=== PATIENT | male | born 1950 | race American Indian/Alaskan Native ===

== ENCOUNTER 2018-12-12 20:17 | Emergency (ER) | payer MEDICARE, OTHER ==
[~2018-12-12] VITALS: Ht 170.2 cm; Wt 81.7 kg
[~2018-12-12 20:17] MED LIST: ALBU90OI6 INH; ASPI81CH PO; ASPIRIN 81 MG PO; ATOR20 PO; ATOR40TA PO; Aspir 8181 MG PO; CEPH500 PO; DULERA 100 MCG/13 GM INH; IBUP800; IBUP800 PO; LEVFLO500 PO; Lipitor20 MG PO; METF500 PO
[2018-12-12 21:01] LABS: Hematocrit 38.2 % (37.0-53.0); Hemoglobin 13.3 g/dL (13.5-17.5); Mean Corpuscular HGB 35.7 pg (26.0-34.0); Mean Corpuscular HGB Conc 34.8 g/dL (31.5-36.5); Mean Corpuscular Volume 102 fL (80-100); Mean Platelet Volume 10.9 fL (9.1-12.4); Platelet Count 180 K/mm3 (150-400); RDW Coefficient Variation 11.9 % (11.7-14.2); RDW Standard Deviation 44.3 fL (35.1-46.3); Red Blood Cell Count 3.73 M/mm3 (4.30-5.90); White Blood Cell Count 6.91 K/mm3 (4.00-11.30)
[2018-12-12 21:27] LABS: Anion Gap 11 mmol/L (6-16); Blood Urea Nitrogen 13 mg/dL (8-24); Bun/Creatinine Ratio 19.1 (12.0-20.0); CO2, Blood 27 mmol/L (21-32); Chloride, Blood 101 mmol/L (98-108); Creatinine, Blood 0.68 mg/dL (0.60-1.20); Glomerular Filtration Rate >60 (60-); Glucose, Blood 379 mg/dL (70-99); Potassium, Blood 3.9 mmol/L (3.5-5.5); Sodium, Blood 139 mmol/L (136-145)
[2018-12-12 21:30] LABS: Ethanol (Alcohol), Blood, Med 307 mg/dL
== END 2018-12-12 22:06 | disposition home or self-care (01) ==
LOC: ER 20:17
PROVIDERS: Emergency Medicine
DX: F10.129 Alcohol abuse with intoxication, unspecified (principal); E11.9 Type 2 diabetes mellitus without complications; Z87.891 Personal history of nicotine dependence; Z79.84 Long term (current) use of oral hypoglycemic drugs; Z79.899 Other long term (current) drug therapy; Y90.8 Blood alcohol level of 240 mg/100 ml or more
CPT/HCPCS: 36415; 80048; 85027; 99284; G0480; J1815

== ENCOUNTER 2021-11-01 15:38 | Inpatient (IN) | payer MEDICARE, OTHER ==
[~2021-11-01] VITALS: Ht 170.2 cm; Wt 70.3 kg
[2021-11-01 16:12] LABS: pH Blood Arterial 7.34 (7.35-7.45)
[2021-11-01 16:13] LABS: PCO2 Arterial 27.3 mmHg (35-45); PO2 Arterial 79.7 mmHg (80-100)
[2021-11-01 16:15] LABS: Hematocrit 40.3 % (37.0-53.0); Hemoglobin 14.1 g/dL (13.5-17.5); Mean Corpuscular HGB 34.9 pg (26.0-34.0); Mean Corpuscular Volume 100 fL (80-100); Mean Platelet Volume 11.3 fL (9.1-12.4); Platelet Count 183 K/mm3 (150-400); RDW Coefficient Variation 11.9 % (11.7-14.2); RDW Standard Deviation 43.8 fL (35.1-46.3); Red Blood Cell Count 4.04 M/mm3 (4.30-5.90); White Blood Cell Count 8.96 K/mm3 (4.00-11.30)
[2021-11-01 16:33] LABS: Anion Gap 15 mmol/L (6-16); Blood Urea Nitrogen 30 mg/dL (8-24); Bun/Creatinine Ratio 24.6 (12.0-20.0); CO2, Blood 17 mmol/L (21-32); Calcium, Blood 8.8 mg/dL (8.5-10.1); Chloride, Blood 98 mmol/L (98-108); Creatinine, Blood 1.22 mg/dL (0.60-1.20); Glomerular Filtration Rate 58 (60-); Glucose, Blood 443 mg/dL (70-99); Magnesium, Blood 1.8 mg/dL (1.6-2.4); Potassium, Blood 5.6 mmol/L (3.5-5.5); Sodium, Blood 130 mmol/L (136-145); Troponin I <0.015 ng/mL (0.000-0.040)
[2021-11-01 16:51] LABS: Influenza A, PCR NEGATIVE (NEGATIVE); Influenza B, PCR NEGATIVE (NEGATIVE); Resp Syncytial Virus, PCR NEGATIVE (NEGATIVE)
[2021-11-01 16:54] LABS: SARS-Cov-2 (COVID-19) PCR, MMC POSITIVE (NEGATIVE)
[2021-11-01 17:00] LABS: BAND PERCENT MAN 46 % (0-8); BASOPHILS PERCENT MAN 0 % (0-2); EOSINOPHILS PERCENT MAN 0 % (0-6); LYMPHOCYTES ABSOLUTE MAN 0.44 K/mm3 (0.84-5.20); LYMPHOCYTES PERCENT MAN 5 % (21-46); METAMYELOCYTE ABSOLUTE MAN 0.35 K/mm3 (0.00-0.00); METAMYELOCYTE PERCENT MAN 4 % (0-0); MONOCYTES ABSOLUTE MAN 0.44 K/mm3 (0.16-1.47); MONOCYTES PERCENT MAN 5 % (4-13); MYELOCYTE ABSOLUTE MAN 0.08 K/mm3 (0.00-0.00); MYELOCYTE PERCENT MAN 1 % (0-0); NEUTROPHILS ABSOLUTE MAN 7.61 K/mm3 (1.96-9.15); SEG NEUTROPHILS PERCENT MAN 39 % (41-73); TOTAL CELLS COUNTED 100
[2021-11-01 20:21] LABS: PCO2 Arterial 53.4 mmHg (35-45); PO2 Arterial 61.7 mmHg (80-100); pH Blood Arterial 7.04 (7.35-7.45)
[2021-11-01 21:37] LABS: Bun/Creatinine Ratio 21.4 (12.0-20.0); Creatinine, Blood 1.45 mg/dL (0.60-1.20); Potassium, Blood 3.5 mmol/L (3.5-5.5)
[2021-11-01 23:06] LABS: Source, Urine Foley catheter
[2021-11-01 23:21] LABS: Appearance, Urine Hazy (Clear); Bilirubin, Urine Neg (Neg); Blood, Urine 5+ (Neg); Color, Urine Yellow (P-Yellow); Glucose Qualitative, Urine 4+ (Neg); Ketones, Urine Neg (Neg); Leukocyte Esterase, Urine Neg (Neg); Nitrite, Urine Neg (Neg); Protein, Urine 3+ (Neg); Urobilinogen, Urine NORM (Normal)
[2021-11-01 23:35] LABS: Bacteria Mod /hpf; Red Blood Cells, Urine 25-50 /hpf (0-2); Squamous Epithelial Cells Few /hpf (Few); White Blood Cells, Urine 0-2 /hpf (0-5)
[2021-11-01 23:36] LABS: Amorphous Light (0-Heavy); Hyaline Casts 0-2 /lpf (0-2); Spermatozoa Few /hpf
--- NOTE | 2021-11-02 00:40 | NUR ---
ASSUMED PT CARE FROM ED AT 2130 PT INTUBATED AND SEDATED. VENT AC/VC 16, VT 450, PEEP 16, FIO2 100%, RR 20'S, SPO2 >90%. PT NOT RESPONSIVE TO VERBAL STIMULI; HOWEVER, WAS RESPONSIVE TO NOXIUOS STIMULI. LEVOPHED INFUSING AT 15MCG/MIN UPON ARRIVAL WITH SBP'S 140'S. LEVOPHED DECREASED TO 10MCG/MIN UNTIL PT WAS FURTHER EVALUATED AND ASSESSED. DR. CABRAL AT BEDSIDE TO PLACE CENTRAL LINE. IN THE MEANTIME, LR WAS ORDERED TO BE INFUSED WO. CENTRAL LINE PLACED TO RIGHT IJ. CHEST XRAY WAS PLACED TO CONFIRM BOTH CENTRAL LINE AND POST INTUBATION FROM ED; DR. CABRLA CONFIRMED PLACEMENT. BICARB STARTED AT 100ML/HR. LEVOPHED DROPPED TO 3MCG/MIN WITH LR INFUSING WO; ORDERS FOR 2L TOTAL. PT VERY LABILE WITH BP'S; LEVOPHED TITRATED ACCORDINGLY. ATTEMPTED TO PERFORM SEDATION VACATION; HOWEVER, PT BECAME AGITATED AND REQUIRED INCREASE IN PROPOFOL, WELL ADJUNCT FENTANYL AND ATIVAN. RESP RATE HAD INCREASED TO 30'S WITH OXYGEN SATURATIONS DROPPING TO LOW 80'S; RT NOTIFIED. LEVOPHED PLACED ON STANDBY AT THIS TIME D/T PT'S AGITATION; SBP WAS 118. ONCE PT BECAME SETTLED FROM SEDATION MEDS OXYGEN SATURATIONS INITIALLY RECOVERED AND THEN DROPPED TO LOW 80'S AGAIN. OXYGEN SATURATION PLETH NOTED TO BE FLAT WITH HR NEETU IN THE 50'S. RECHECKED BP WITH SYSTOLIC IN THE 50'S. RESTARTED LEVOPHED AT 8MCG/MIN WITH A REBOUND BP OF SYSTOLIC 190'S AND HR INCREASED TO 120'S; TITRATED BACK DOWN TO 3MCG/MIN AND NOW DOWN TO 1MCG/MIN D/T SBP 150'S. OXYGEN SATURATIONS ARE CURRENTLY 99% ON 100% FIO2 WITH VENT SETTINGS AC/VC PLUS 16, VT 450, PEEP 12, FIO2 80%. RT REMAINS AT BEDSIDE UNTIL OXYGEN SATURATIONS REMAIN STABLE.
[2021-11-02 03:34] LABS: PCO2 Arterial 53.6 mmHg (35-45); PO2 Arterial 82.7 mmHg (80-100); pH Blood Arterial 7.18 (7.35-7.45)
--- NOTE | 2021-11-02 04:29 | NUR ---
END OF SHIFT SUMMARY PT REMAINS INTUBATED AND SEDATED. PROPOFOL AT 25MCG/KG/MIN. DURING BRIEF SEDATION VACATION EARLIER IN SHIFT PT WAS NOT ABLE TO OPEN EYES, BUT WAS ABLE TO SQUEEZE LEFT HAND UPON COMMAND. PT ALSO NOTED TO WITHDRAWAL FROM NOXIOUS STIMULI AND MOVES ALL EXTREMITIES; VERY WEAK. VENT SETTINGS AC/VC PLUS WITH RATE 22, VT 450, PEEP 12, FIO2 90%, SPO2>90%, RR 20'S, WITH ETCO2 25. PT TENDS TO DROP OXYGEN SATURATIONS WITH ANY NOXIOUS STIMULI; RESP RATE INCREASES TO HIGH 20'S-30'S AND ETCO2 DROPS BELOW 25, AND SPO2 DROPS TO THE LOW-MID 80'S. PT HAS REQUIRED ADJUNCT TREATMENT FOR SEDATION, BUT ALSO CAREFUL TITRATIONS OF LEVOPHED. BP'S ARE VERY SENSITIVE TO LEVOPHED TITRATIONS WITH QUICK AND HIGHTENED RESPONSES. CURRENTLY, LEVOPHED REMAINS AT 2MCG/MIN WITH MAPS >65. CENTRAL LINE TO RIGHT IJ. BICARB INFUSION INCREASED TO 150ML/HR THIS MORNING PER . TEMP PALOMINO IN PLACE DRAINING DARK, CLOUDY, AND VIVI COLORED URINE. UNABLE TO RETURN CALL TO [facility], WHOM CALLED EMS FOR PATIENT PT WAS CRITICAL AND REQUIRED ONE TO ONE NURSING FOR THE FIRST FEW HOURS UPON ARRIVAL TO UNIT. WILL ATTEMPT LATER IN THE MORNING. WILL CONTINUE TO MONITOR UNTIL REPORT IS HANDED OFF TO ONCOMING RN.
[2021-11-02 04:50] LABS: Hemoglobin 11.3 g/dL (13.5-17.5); Mean Corpuscular HGB 35.1 pg (26.0-34.0); Mean Corpuscular HGB Conc 34.2 g/dL (31.5-36.5); Mean Corpuscular Volume 103 fL (80-100); Mean Platelet Volume 11.1 fL (9.1-12.4); Platelet Count 154 K/mm3 (150-400); RDW Coefficient Variation 12.1 % (11.7-14.2); RDW Standard Deviation 46.1 fL (35.1-46.3); Red Blood Cell Count 3.22 M/mm3 (4.30-5.90); White Blood Cell Count 2.55 K/mm3 (4.00-11.30)
[2021-11-02 05:11] LABS: International Normalized Ratio 1.23; Prothrombin Time Results 12.7 Sec (9.7-11.5)
[2021-11-02 05:48] LABS: Albumin, Blood 2.2 g/dL (3.4-5.0); Albumin/Globulin Ratio 0.7 (0.8-1.8); Bilirubin, Total 0.3 mg/dL (0.1-1.0); Bun/Creatinine Ratio 21.5 (12.0-20.0); Calcium, Blood 7.1 mg/dL (8.5-10.1); Creatinine, Blood 1.44 mg/dL (0.60-1.20); Globulin, Blood 3.3 g/dL (2.2-4.0); Magnesium, Blood 1.6 mg/dL (1.6-2.4); Phosphorus, Blood 2.9 mg/dL (2.5-4.9); Potassium, Blood 3.3 mmol/L (3.5-5.5); Thyroid Stimulating Hormone 1.32 uIU/mL (0.360-4.800); Total Protein, Blood 5.5 g/dL (6.4-8.2)
[2021-11-02 05:53] LABS: Troponin I 0.532 ng/mL (0.000-0.040)
[2021-11-02 06:43] LABS: BAND PERCENT MAN 50 % (0-8); BASOPHILS PERCENT MAN 0 % (0-2); EOSINOPHILS ABSOLUTE MAN 0.02 K/mm3 (0.00-0.68); EOSINOPHILS PERCENT MAN 1 % (0-6); LYMPHOCYTES PERCENT MAN 12 % (21-46); METAMYELOCYTE ABSOLUTE MAN 0.25 K/mm3 (0.00-0.00); METAMYELOCYTE PERCENT MAN 10 % (0-0); MONOCYTES PERCENT MAN 4 % (4-13); MYELOCYTE ABSOLUTE MAN 0.12 K/mm3 (0.00-0.00); MYELOCYTE PERCENT MAN 5 % (0-0); PROMYELOCYTE ABSOLUTE MAN 0.02 K/mm3 (0.00-0.00); PROMYELOCYTE PERCENT MAN 1 % (0-0); SEG NEUTROPHILS PERCENT MAN 17 % (41-73); TOTAL CELLS COUNTED 100
[2021-11-02 09:28] LABS: PO2 Arterial 62.1 mmHg (80-100); pH Blood Arterial 7.27 (7.35-7.45)
--- NOTE | 2021-11-02 12:15 | NUR ---
REASSESSMENT PT REMAINS INTUBATED AND SEDATED. ABOUT NOON WHEN TURNING AND RESPOSITIONING HIM HIS RLE STARTED RHYTHMICALLY JERKING SLIGHTLY. HIS JAW WAS ALSO MOVING IN A RHYTHMIC MOTION. DR. JONES TO THE BEDSIDE TO WITNESS. 2MG ATIVAN GIVEN PER MAR AND JERKING STOPPED. PT DESATURATED TO 80% WITH THE TURN AND SEIZURE LIKE MOVEMENTS AND TOOK ABOUT 10 MINUTES TO RECOVER. RT HAD WEANED PT DOWN TO 75% fio2, BUT HE IS NOW BACK UP TO 90%fio2 AFTER ALL THIS. LUNGS ARE CLEAR, DIM. MINIMAL SECRETIONS. WEAK GAG. COUGH PRESENT. PT CONTINUES TO REQUIRE LEVOPHED FOR BP SUPPORT. ATTEMPTED TO WEAN DOWN BUT PT DID NOT TOLERATE. REMAINS ON INSULIN GTT. BG CONTINUE TO BE IN THE 300S BUT COMING DOWN. WAITING FOR TUBE FEED ORDERS FROM MANAGER OF DIGITAL. [place]TE WITH 450ML OUTPUT THIS MORNING. CONTINUING TO MONITOR.
[2021-11-02 12:53] LABS: Bun/Creatinine Ratio 23.1 (12.0-20.0); Calcium, Blood 7.3 mg/dL (8.5-10.1); Creatinine, Blood 1.43 mg/dL (0.60-1.20); Potassium, Blood 3.7 mmol/L (3.5-5.5)
--- NOTE | 2021-11-02 14:28 | NUR ---
WITHT HE LAST TURN PT'S FOOT STARTED TREMORING AGAIN AND OXYGEN RAPIDLY DROPPED TO 78%, DESPITE PREOXYGENATING WITH 100% BECAUSE OF PT DESATURATING WITH LAST TURN. 2MG ATIVAN GIVEN AND PT SLWLY RECOVERED. DR. CABRAL NOTIFIED OF THIS HAPPENING AGAIN. ALSO CLARIFIED KEP[facility] ORDER AND RECEIVED OK TO GIVE IV AND HOLD UNTIL AFTER EEG BECAUSE FINANCIAL SERVICES OFFICER CALLED AND SAID SHE COULD COME DO IT NOW. CONTINUE TO MONITOR.
--- NOTE | 2021-11-02 18:01 | NUR ---
SHIFT SUMMARY PT REMAINS INTUBATED AND SEDATED. THIS AFTERNOON PT HAS BEEN GETTING VERY AGITATED WITH ANY DISTURBANCE CAUSING HIM TO QUICKLY KATYA PHIS SATURATIONS TO 80%. THE FIRST TIME THIS HAPPENED IT APPEARED PT MIGHT BE HAVING SEIZURE LIKE ACTIVITY SO EEG ORDERED BY DR. CABRAL AND DONE THIS AFTERNOON. SEDATION WAS ABLE TO BE OFF FOR THIS 40 MINUTES BEFORE PT'S SATURATIONS DROPPED TO 80% ON 100% FIO2. SEDATION WAS RESTARTED AND PRN FENTANYL WAS REQUIRED TO GET PT'S SATURATIONS BACK UP. BEFORE SEDATION WAS RESTARTED PT DID NOT FOLLOW ANY COMMANDS. THIS MORNING PT HAD A WEAK GAG REFLEX, BUT THIS EVENING NO GAG REFLEX IS NOTED. PUPILS REMAIN PINPOINT, SLUGGISH RESPONSE. LUGNS ARE CLEAR, BUT DIM. LEVOPHED FOR BP SUPPORT, ATTEMPTED TO WEAN DOWN, BUT MAP DROPPED BELOW 60. FOELY WITH 450 ML OF URINE BEFORE NOON, BUT ONLY 115ML THIS AFTERNOON. TUBE FEED STARTED THIS EVENING AFTER EEG COMPLETE. SPOKE WITH PT'S SISTER AND PROVIDED HER WITH UPDATE VIA TC.
--- NOTE | 2021-11-02 20:15 | NUR ---
PT'S SISTER DILMA IS UPDATED BY PHONE.
--- NOTE | 2021-11-02 21:11 | NUR ---
DR CABRAL CONTACTED ABOUT INSULIN GTT. WILL DECREASE TO 1 UNIT/HR AND IF CBG REMAINS UNDER 150 MAY DC GTT AND CHANGE TO HIGH SS AND Q6 CBG
[2021-11-03 04:05] LABS: Hematocrit 31.2 % (37.0-53.0); Hemoglobin 10.8 g/dL (13.5-17.5); Mean Corpuscular HGB 35.2 pg (26.0-34.0); Mean Corpuscular HGB Conc 34.6 g/dL (31.5-36.5); Mean Corpuscular Volume 102 fL (80-100); Platelet Count 115 K/mm3 (150-400); RDW Coefficient Variation 12.5 % (11.7-14.2); RDW Standard Deviation 46.5 fL (35.1-46.3); Red Blood Cell Count 3.07 M/mm3 (4.30-5.90); White Blood Cell Count 2.17 K/mm3 (4.00-11.30)
[2021-11-03 04:25] LABS: Albumin/Globulin Ratio 0.6 (0.8-1.8); Bilirubin, Total 0.5 mg/dL (0.1-1.0); Creatinine, Blood 1.43 mg/dL (0.60-1.20); Globulin, Blood 3.4 g/dL (2.2-4.0); Magnesium, Blood 1.7 mg/dL (1.6-2.4); Phosphorus, Blood 3.3 mg/dL (2.5-4.9); Total Protein, Blood 5.4 g/dL (6.4-8.2)
[2021-11-03 05:23] LABS: BAND PERCENT MAN 33 % (0-8); BASOPHILS PERCENT MAN 0 % (0-2); EOSINOPHILS PERCENT MAN 0 % (0-6); LYMPHOCYTES ABSOLUTE MAN 0.47 K/mm3 (0.84-5.20); LYMPHOCYTES PERCENT MAN 22 % (21-46); METAMYELOCYTE ABSOLUTE MAN 0.04 K/mm3 (0.00-0.00); METAMYELOCYTE PERCENT MAN 2 % (0-0); MONOCYTES ABSOLUTE MAN 0.06 K/mm3 (0.16-1.47); MONOCYTES PERCENT MAN 3 % (4-13); MYELOCYTE ABSOLUTE MAN 0.06 K/mm3 (0.00-0.00); MYELOCYTE PERCENT MAN 3 % (0-0); NEUTROPHILS ABSOLUTE MAN 1.51 K/mm3 (1.96-9.15); SEG NEUTROPHILS PERCENT MAN 37 % (41-73); TOTAL CELLS COUNTED 100
--- NOTE | 2021-11-03 06:18 | NUR ---
TF IS AT GOAL, CBG TRENDING UP NECESSITATING TITRATING UP INSULIN GTT. NO SX ACITIVITY NOTED. LEVOPHED AT 1-2MCG/MIN FOR BP SUPPORT. ETT CUFF CHECKED MULTIPLE TIMES BY RT FOR LEAKS, WORSE WITH POSITION CHANGE. NO OTHER SIGNIFICANT CHANGES NOTED. WILL CONTINUE TO MONITOR AND REPORT TO ONCOMING SHIFT.
--- NOTE | 2021-11-03 08:37 | NUR ---
ASSUMED CARE PT. REMAINS INTUBATED. SEDATION PLACED ON STAND BY UPON ENTRY INTO ROOM FOR NERUO ASSESSMENT. PT. HAS OCCASIONAL GRIMACE HOWEVER DOES NOT RESPOND TO VERBAL STIMULI AT THIS TIME. PT. DOES NOT WITHDRAWN FROM PAIN AT THIS TIME. THERE IS NO GAG WITH DEEP SUCTION AT THIS TIME. PUPILS ARE EQUAL AND REACTIVE TO LIGHT. PT. CONTINUES ON LEVOPHED GTT AT 1MCG/KG/MIN. INSULIN GTT INFUSING AT 8U/HR PT. HAS OG TUBE WITH TF INFUSING. < 10ML RESIDUAL REINSTILLED. ABD SOFT. LOOSE STOOL NOTED WITH TURN. PT. HAS PALOMINO TEMP PROBE IN PLACE, DRAINING YELLOW URINE TO GRAVITY. BILAT WRIST RESTRAINTS IN PLACE FOR SAFETY. VSS AT THIS TIME.
--- NOTE | 2021-11-03 09:15 | NUR ---
SEDATION VACATION PROPOFOL ON STAND BY FOR 1HR. PT. HAD GRIMACE AND SWALLOW WITH REPOSITION BUT NO GAG WITH DEEP SUCTION. OCCASIONALLY COUGH ON ETT. PT. RR INCREASED TO 30S. PT. PROPOFOL RESTARTED AT THIS TIME AT 30MCG/KG/MIN. PT CONTINUES WITH DIARRHEA, RECTAL TUBE PLACED AND STOOL SAMPLE OBTAINED. DR. PUGH AT BEDSIDE TO [place].
--- NOTE | 2021-11-03 12:00 | NUR ---
UPDATE PT. DESATS QUICKLY TO THE LOW 80s WITH REPOSITIONING. TAKING APPORX 30 MIN TO RECOVER TO LOW 90S. FIO2 INCREASED TO 80%.CUFF LEAK NOTED WITH POSITIONING, ADD ADDITIONAL AIR THIS AM AND RT AWARE. LEVOPHED PLACED ON STAND BY AT THIS TIME.
[2021-11-03 13:00] LABS: C DIFFICILE DNA NEGATIVE (Negative)
--- NOTE | 2021-11-03 15:00 | NUR ---
DESATURATION PT. BEGAN TO DESAT DOWN TO 82%. BILAT BS NOTED, UNCHANGED FROM PREVIOUS ASSESSMENT.CALL TO RT TO ASSIST WITH VENT SETTINGS. DR. BAZZI TO BEDSIDE. ATTEMPTED REPOSITIONING. MINIMAL SECREATIONS WITH DEEP SUCTION. VENT SETTINGS CHANGED, PEEP INCREASED TO 14, FIO2 INCREASED TO 90%. 2MG ATIVAN GIVEN AND PROPOFOL GTT INCREASED TO 45 MCG/KG/MIN. SPO2 IMPROVED TO 92%.
--- NOTE | 2021-11-03 16:10 | NUR ---
Pt resting in bed and is intubated. Spoke with Pt's Primary RN Sammie and discussed case. Pt has sedation vacaton today, Pt was able to grimace but no gag reflex. Called and spoke with Pt's sister Lucie. Provided update and offered therapetuic listening as Lucie reports her and Pt are the last 2 surviving siblings of 10. She reports Pt never and never had children. Continued therapeutic listening. Engaged on conversation regarding Pt's wishes for CPR. Educated on life sustaing treatment including risk factors and implications of CPR. Lucie reports plan to have her son (Pt's nephew) call to assist with understanding CPR due to her current stress levels. Pt's nephew calls this PC RN. Relayed update on Pt's condition and education regarding CPR and Pt's wishes. Answered questions and offered therapeutic listening. Nephdakota Olivas reports the last time he saw Pt, Pt did not look well and his health appeared poor. Nephdakota Olivas expresses appreciation and will assit Pt's sister Lucie regarding Pt's wishes for future CPR. Palliative Care will remain available.
--- NOTE | 2021-11-03 18:08 | NUR ---
SHIFT SUMMARY PT. REMAINS SEDATED AND INTUBATED. FIO2 REQUIREMENT AND PEEP INCREASED THIS SHIFT. PT. SENSITIVE TO REPOSITIONING, AND REQUIRES TIME TO RECOVER. RECTAL TUBE PLACED FOR DIARRHEA. LEVOPHED GTT TITRATED OFF THIS SHIFT AND PT WAS TRANSITIONED TO SS INSULIN OFF OF INSULIN GTT. PT. VSS AT THIS TIME. REPORT TO ONCOMING RN.
--- NOTE | 2021-11-03 18:48 | NUR ---
LEVOPHED GTT RESTARTED AT 1MCG/MIN
--- NOTE | 2021-11-03 20:00 | NUR ---
ASSUMED CARE. UNRESPONSIVE EXCEPT TO PAIN. NO GAG REFLEX WHEN SUCTIONING, DOES NOT RESPOND TO MOVEMENT. VENT 22/450/14/85%. PROPOFOL, LEVO, LR ALL INFUSING. ADMINISTERED 2100 MEDS. CURRENTLY IN AFIB. CHARGE CALLING MD FOR ORDERS. REPOSITIONED. RECTAL TUBE DRAINING, CATH PATENT AND DRAINING. ORAL CARE PROVIDED. WILL ASSESS AND PROVIDE CARE PER ORDERS.
[2021-11-04 04:06] LABS: Hemoglobin 10.1 g/dL (13.5-17.5); Mean Corpuscular HGB 34.7 pg (26.0-34.0); Mean Corpuscular HGB Conc 33.7 g/dL (31.5-36.5); Mean Corpuscular Volume 103 fL (80-100); Mean Platelet Volume 11.9 fL (9.1-12.4); NRBC ABSOLUTE 0.02 K/mm3 (0.00-0.02); NRBC Auto 0.4 /100 WBC (0.0-0.2); Platelet Count 120 K/mm3 (150-400); RDW Coefficient Variation 12.6 % (11.7-14.2); RDW Standard Deviation 47.4 fL (35.1-46.3); Red Blood Cell Count 2.91 M/mm3 (4.30-5.90); White Blood Cell Count 5.49 K/mm3 (4.00-11.30)
[2021-11-04 04:32] LABS: Alanine Aminotransfer (ALT/SGP 33 U/L (12-78); Albumin, Blood 1.8 g/dL (3.4-5.0); Albumin/Globulin Ratio 0.5 (0.8-1.8); Alk Phos 76 U/L (50-136); Anion Gap 6 mmol/L (6-16); Aspartate Aminotrans (AST/SGOT 55 U/L (12-37); Bilirubin, Direct 0.3 mg/dL (0.0-0.3); Bilirubin, Indirect 0.2 mg/dL (0.1-0.7); Bilirubin, Total 0.5 mg/dL (0.1-1.0); Blood Urea Nitrogen 58 mg/dL (8-24); Bun/Creatinine Ratio 37.4 (12.0-20.0); CO2, Blood 27 mmol/L (21-32); Calcium, Blood 7.3 mg/dL (8.5-10.1); Chloride, Blood 103 mmol/L (98-108); Creatinine, Blood 1.55 mg/dL (0.60-1.20); Globulin, Blood 3.4 g/dL (2.2-4.0); Glomerular Filtration Rate 44 (60-); Glucose, Blood 520 mg/dL (70-99); Phosphorus, Blood 2.4 mg/dL (2.5-4.9); Potassium, Blood 4.1 mmol/L (3.5-5.5); Sodium, Blood 136 mmol/L (136-145); Total Protein, Blood 5.2 g/dL (6.4-8.2); Triglycerides 322 mg/dL (30-160)
[2021-11-04 04:52] LABS: BAND PERCENT MAN 40 % (0-8); BASOPHILS PERCENT MAN 0 % (0-2); EOSINOPHILS PERCENT MAN 0 % (0-6); LYMPHOCYTES ABSOLUTE MAN 0.21 K/mm3 (0.84-5.20); LYMPHOCYTES PERCENT MAN 4 % (21-46); METAMYELOCYTE ABSOLUTE MAN 0.16 K/mm3 (0.00-0.00); METAMYELOCYTE PERCENT MAN 3 % (0-0); MONOCYTES PERCENT MAN 2 % (4-13); NEUTROPHILS ABSOLUTE MAN 4.99 K/mm3 (1.96-9.15); SEG NEUTROPHILS PERCENT MAN 51 % (41-73); TOTAL CELLS COUNTED 100
--- NOTE | 2021-11-04 06:40 | NUR ---
SHIFT SUMMARY: SEDATED/INTUBATED. ONLY RESPONDS TO PAIN STIMULI. NO GAG, COUGH REFLEX. PROPOFOL WAS PLACED ON HOLD AT 0345, ONLY NEURO RESPONSE IS MILD GRIMACING WITH PAIN. VENT CURRENTLY 15/450/14/70% WITH SATS LOW 90'S. LS COARSE IN BASES, SUCTION: THICK SMALL YELLOW SECREATIONS. CONVERTED INTO AFIB START OF SHIFT, AMIODORONE STARTED AT 1, NOW AT 0.5MG. LEVO STOPPED. BP RUNNING SOFT 90-110'S. HR 90-110'S. HYPOTHERMIC MOST OF SHIFT IN 96.3, HAD TO PLACE BEAR HUGGER. BEAR HUGGER OFF, FEBRILE 99.9. PALOMINO PATENT. FLEXSEAL IN PLACE FOR LIQUID STOOLS, 150CC THIS SHIFT. BLOOD SUGARS IN 400'S, STARTED INSULIN DRIP, CURRENTLY RUNNING AT 12 UNITS/HR. LAST BLOOD SUGAR IN THE 397. WILL REPORT TO DAYSHIFT.
--- NOTE | 2021-11-04 09:15 | NUR ---
ASSUMED CARE PT. REMAINS INTUBATED AND OFF OF SEDATION THIS AM. PT DOES NOT RESPOND TO VERBAL STIMULI, PT DOES NOT HAVE A GAG WITH ORAL SUCTION. HE DOES GRIMACE WITH ORAL SUCTION BUT DOES NOT PULL AWAY. COUGH NOTED WITH DEEP SUCTION. UPWARD GAZE WITH PUPILS EQUAL AND REACTIVE TO LIGHT. NO SPONT MOVEMENT. PT. IN AFIB WITH AMIODARONE INFUSING. PT. ON INSULIN GTT THIS AM. PT CONTINUES WITH DIAHRREA, RECTAL TUBE PATENT AND DRAINING TO GRAVITY. TF INFUSING AT 45ML/HR WITH 20ML RESIDUAL REINSTILLED THIS AM. PALOMINO TEMP PROBE PATENT AND DRAINING TO GRAVITY. AFEBRILE THIS AM. PT REPOSITIONED FOR PRESSURE RELIEF. VSS AT THIS TIME.
--- NOTE | 2021-11-04 11:36 | NUR ---
PT REMAINS UNRESPONSIVE DESPITE PROPOFOL BEING ON STAND BY. PT TAKEN FOR HEAD CT.
--- NOTE | 2021-11-04 12:30 | NUR ---
TEMP DECREASING GRADUALLY T/O THE DAY. BEARHUGGER PLACED.
--- NOTE | 2021-11-04 17:30 | NUR ---
SHIFT SUMMARY PT. REMAINS INTUBATED WITH SEDATION OFF ALL SHIFT. ONE DOSE OF ATIVAN GIVEN DURING EPISODE OF DESATURATION WHERE REPOSITIONING, AND SUCTIONING DID NO RECOVER PT. AFTER ATIVAN ADMIN SPO2 RETURNED TO LOW 90S WITH NO FURTHER EPISODES OF DESATURATION NOTED. PT. CONTINUES TO NOT HAVE A GAG BUT DOES GRIMACE WITH ORAL CARE. NO SPONT MOVEMENT TO EXTREM NOTED TODAY. BEAR HUGGER NEEDED THIS SHIFT TO INCREASE TEMP WITH GOOD RESPONSE. PT. CONTINUES WITH RECTAL TUBE AND PALOMINO DRAINING TO GRAVITY. DR. BAZZI UPDATED FAMILY TODAY AFTER CT SCAN. VSS T/O SHIFT. PT REMAINS ON INSULIN GTT. SEE TITRATIONS. REPORT TO ONCOMING RN.
--- NOTE | 2021-11-04 19:30 | NUR ---
ASSUMED CARE. INTUBATED, VENT SETTINGS 22/450/12/70%. REPONDS TO PAIN STIMULI, WILL OPEN EYES WHEN BEING MOVED, PUPILS ARE REACTIVE TO LIGHT, FLEXION WITHDRAWL WHEN PRESSURE APPLIED TO EXTREMITITES. NOW HAS COUGH, SWALLOW AND GAG REFLEX. WILL BITE WHEN SUCTION IS BEING DONE. LUNG SOUNDS ARE COARSE ON THE RIGHT SIDE, SECREATIONS ARE SMALL AMOUNTS MOSTLY ORAL, THICK YELLOW. MEDS ADMINISTERED, REPOSITIONED, RECTAL TUBE AND CATH ARE STILL PATENT. BLOOD SUGAR IN MID 100'S. WILL MONITOR, AND PROVIDE CARE.
[2021-11-05 03:37] LABS: Hemoglobin 9.6 g/dL (13.5-17.5); Mean Corpuscular HGB 33.7 pg (26.0-34.0); Mean Corpuscular HGB Conc 33.1 g/dL (31.5-36.5); Mean Corpuscular Volume 102 fL (80-100); NRBC ABSOLUTE 0.02 K/mm3 (0.00-0.02); NRBC Auto 0.3 /100 WBC (0.0-0.2); RDW Coefficient Variation 12.6 % (11.7-14.2); RDW Standard Deviation 47.8 fL (35.1-46.3); Red Blood Cell Count 2.85 M/mm3 (4.30-5.90); White Blood Cell Count 7.51 K/mm3 (4.00-11.30)
[2021-11-05 03:42] LABS: Mean Platelet Volume 11.6 fL (9.1-12.4); Platelet Count 106 K/mm3 (150-400)
[2021-11-05 04:05] LABS: Albumin, Blood 1.8 g/dL (3.4-5.0); Anion Gap 5 mmol/L (6-16); Blood Urea Nitrogen 66 mg/dL (8-24); Bun/Creatinine Ratio 43.7 (12.0-20.0); CO2, Blood 28 mmol/L (21-32); Calcium, Blood 7.5 mg/dL (8.5-10.1); Chloride, Blood 107 mmol/L (98-108); Creatinine, Blood 1.51 mg/dL (0.60-1.20); Glomerular Filtration Rate 46 (60-); Glucose, Blood 164 mg/dL (70-99); Phosphorus, Blood 2.4 mg/dL (2.5-4.9); Potassium, Blood 3.9 mmol/L (3.5-5.5); Sodium, Blood 140 mmol/L (136-145)
[2021-11-05 05:28] LABS: BAND PERCENT MAN 18 % (0-8); BASOPHILS PERCENT MAN 0 % (0-2); EOSINOPHILS PERCENT MAN 0 % (0-6); LYMPHOCYTES % ATYPICAL MANUAL 3 % (0-0); LYMPHOCYTES ABSOLUTE MAN 0.52 K/mm3 (0.84-5.20); LYMPHOCYTES PERCENT MAN 4 % (21-46); MONOCYTES ABSOLUTE MAN 0.37 K/mm3 (0.16-1.47); MONOCYTES PERCENT MAN 5 % (4-13); MYELOCYTE ABSOLUTE MAN 0.07 K/mm3 (0.00-0.00); MYELOCYTE PERCENT MAN 1 % (0-0); NEUTROPHILS ABSOLUTE MAN 6.53 K/mm3 (1.96-9.15); SEG NEUTROPHILS PERCENT MAN 69 % (41-73); TOTAL CELLS COUNTED 100
--- NOTE | 2021-11-05 06:23 | NUR ---
SHIFT SUMMARY: CONTINUOUS ON VENT AT 22/450/14/80%. COUPOUS ABOUT OF SECREATIONS YELLOW THICK, SUCTIONING PERFORMED EVERY TWO HOURS, TACHYPNEIC. COARSE CRACKLES ON THE RIGHT, HAD TO ADD AIR TO CUFF SEVERAL TIMES DUE TO LEAK. RT NOTIFIED AND MEASURED PRESSURE. MORE RESPONSIVE THEN PREVIOUS NIGHT, OPENED EYES, HAD COUGH, SWALLOW AND GAG REFLEX. TENDS TO BITE DOWN ON SUCTION TUBING. NO SEDATION. PUPILS ARE REACTIVE AND BRISK. REMAINED IN SINUS ENTIRE SHIFT AVERAGE HR 80'S. CONTINUES ON AMIODORONE DRIP AT 0.5MG. BLOOD PRESSURE STABLE. HELD NORMAL TEMPS THIS SHIFT. RECATAL TUBE STILL IN PLACE ONLY PUT OUT 25ML. PALOMINO CONTINUES TO BE PATENT. INSULIN DRIP NOW DOWN TO 4, LAST BLOOD SUGAR 130'S. NO OTHER SIGNIFICANT CHANGES TO NOTE. WILL REPORT OFF.
--- NOTE | 2021-11-05 08:59 | NUR ---
ASSUMED CARE THIS AM PT REMAINS OFF OF SEDATION AND INTUBATED. PT EYES OPEN BUT WITH UPWARD GAZE. DOES NOT FOLLOW COMMANDS OR RESPOND TO VERBAL STIMULI. PT. DOES HAVE FACIAL GRIMACE WITH ORAL CARE, MOVED HEAD TO THE SIDE WITH ORAL SUCTION. NO SPONT MOVEMENT TO EXTREM. NO GAG WITH DEEP SUCTION, BUT MORE FACIAL GRIMACE AND PT CLOSES MOUTH SLIGHTLY. PT. DOES HAVE A COUGH WITH DEEP SUCTION OF ETT. MORE SECREATIONS NOTED THIS AM THEN YESTERDAY. MODERATE AMOUNT OF THICK GORDILLO SECREATIONS WITH ORAL SUCTIONING. PT. VENT SETTINGS ACVC 22, TV 450, PEEP 14, FIO2 70%. SPO2 90S. NSR, HR 80S. REMAINS ON AMIO GTT AT 0.5 MG/MIN. PT. HAS INSULIN GTT INFUSING, BG MORE CONTROLLED TO DAY, PLANS TO TRANSITION PT TO SUBCU INSULIN TODAY. PT. HAS MINIMAL RESIDUALS, WITH TF INFUSING AT GOAL. PT. CONTINUES WITH LOOSE STOOL, RECTAL TUBE IN PLACE. PT. HAS TEMP PALOMINO DRAINING TO GRAVITY. AFEBRILE THIS AM. BILAT WRIST RESTRAINTS REMAIN IN PLACE.
--- NOTE | 2021-11-05 11:18 | NUR ---
EPISODE OF DESATURATION WITH CUFF LEAK DR. BAZZI TO BEDSIDE. DR. BAZZI DEFLATED CUFF AND REINFLATED. CUFF LEAK NO LONGER PRESENT. PT. CONTINUES TO BE BETWEEN 84-87% SPO2. ATIVAN ADMIN. NO CHANGES TO SATURATION. DR. BAZZI INCREASED PEEP TO 16 AND FIO2 TO 80% FENTANYL GIVEN. PT SPO2 IMPROVING TO 93%. RT NOTIFIED.
--- NOTE | 2021-11-05 17:23 | NUR ---
SHIFT SUMMARY PT. REMAINS OFF OF SEDATION NO ACUTE CHANGES TO NEURO ASSESSMENT. FIO2 AND PEEP REQUIREMENTS INCREASED THIS SHIFT. PT REMAINS IN NSR, WITH PLANS TO TRANSITION OFF OF AMIO GTT TOMORROW MORNING. PT. TRANSITIONED OFF OF INSULIN GTT TODAY WITH HIGH SLIDING SCALE COVERAGE. GOOD RESPONSE IN URINE OUTPUT WITH LASIX ADMIN TODAY. PT. HAD MINIMAL OUTPUT WITH RECTAL TUBE. REPOSITIONED AND CONTINUES TO HAVE LIQUID STOOL IN TUBING. REPORT TO ONCOMING RN.
--- NOTE | 2021-11-05 19:28 | NUR ---
ASSUMED PT CARE AT 1915 PT REMAINS INTUBATED. OFF SEDATION AT THIS TIME. VENT AC/VC PLUS VENT 22, VT 450, PEEP 15, FIO2 80%, RR HIGH 20'S, SPO2 92%. AMIODARONE GTT REMAINS AT 0.5MG/HR WITH GOAL TO STOP IN THE AM WHEN PO AMIODARONE IS STARTED. PT REMAINS NSR WITH HR 80'S. SBP 160'S AT THIS TIME. TUBE FEED, VHP, AT GOAL OF 45MLS/HR. RECTAL TUBE IN PLACE AND PATENT. TEMP PALOMINO IN PLACE AND PATENT/DRAINING TO GRAVITY. DR. BAZZI ADJUSTING DIURETICS D/T POSITIVE FLUID BALANCE. SEE SHIFT SUMMARY FOR FURTHER DETAILS.
--- NOTE | 2021-11-05 22:37 | NUR ---
ASSESSMENT NEURO NIEVES PT REMAINS OFF PROPOFOL. RESPONDS TO NOXIOUS STIMULI WITH FACIAL GRIMACING, PLANTAR REFLEX STIMULATED; HOWEVER, NO WITHDRAWING FROM PAINFUL STIMULI. PT APPEARS TO BE ATTEMPTING TO OPEN EYES; HOWEVER, GAZE IS UPWARD WITH ONLY MOVEMENT OF LEFT EYE, WHICH DOES NOT APPEARS TO BE PURPOSEFUL. RIGHT EYE DOES NOT HAVE ANY MOVEMENT NOTED. PUPILS ARE UNEQUAL; LEFT AT 3MM AND RIGHT AT 2MM; BOTH ARE RESPONSIVE TO LIGHT. DURING ORAL CARES IT APPEARS PT CAN TURN HIS HEAD TOWARD STIMULUS; HOWEVER, THIS MAY NOT BE PURPOSEFUL IT ONLY OCCURRED ONCE. GAG REFLEX PRESENT; HOWEVER, VERY DIFFICULT TO STIMULATE AND NOT ABLE TO STIMULATE EVERY TIME. URINE CATHETER BAG APPEARS TO BE LEAKING D/T PORT NOT TIGHTENED ALL THE WAY; UNKNOWN HOW MUCH URINE WAS LOST TO THE FLOOR. HOWEVER, PORT SECURED AND TUB PLACED UNDERNEATH PALOMINO IN CASE IT STARTS TO LEAK AGAIN. PALOMINO FOUND TO BE LEAKING SHORTLY AFTER LASIX WAS ADMINISTERED. WILL CONTINUE TO MONITOR.
[2021-11-06 04:10] LABS: PCO2 Arterial 57.4 mmHg (35-45); PO2 Arterial 69.1 mmHg (80-100); pH Blood Arterial 7.32 (7.35-7.45)
[2021-11-06 04:12] LABS: Hematocrit 30.6 % (37.0-53.0); Hemoglobin 10.3 g/dL (13.5-17.5); Mean Corpuscular HGB 34.2 pg (26.0-34.0); Mean Corpuscular HGB Conc 33.7 g/dL (31.5-36.5); Mean Corpuscular Volume 102 fL (80-100); Mean Platelet Volume 11.7 fL (9.1-12.4); NRBC ABSOLUTE 0.02 K/mm3 (0.00-0.02); NRBC Auto 0.2 /100 WBC (0.0-0.2); Platelet Count 128 K/mm3 (150-400); RDW Standard Deviation 49.4 fL (35.1-46.3); Red Blood Cell Count 3.01 M/mm3 (4.30-5.90); White Blood Cell Count 10.88 K/mm3 (4.00-11.30)
[2021-11-06 04:37] LABS: Albumin, Blood 1.9 g/dL (3.4-5.0); Anion Gap 6 mmol/L (6-16); Blood Urea Nitrogen 76 mg/dL (8-24); Bun/Creatinine Ratio 51.7 (12.0-20.0); CO2, Blood 29 mmol/L (21-32); Calcium, Blood 7.6 mg/dL (8.5-10.1); Chloride, Blood 105 mmol/L (98-108); Creatinine, Blood 1.47 mg/dL (0.60-1.20); Glomerular Filtration Rate 47 (60-); Glucose, Blood 283 mg/dL (70-99); Potassium, Blood 4.6 mmol/L (3.5-5.5); Sodium, Blood 140 mmol/L (136-145)
--- NOTE | 2021-11-06 05:14 | NUR ---
END OF SHIFT SUMMARY NO SIGNIFICANT CHANGES SINCE PRIOR NOTES. VENT REMAINS AC/VC + RATE 22, VT 450, PEEP 16, FIO2 70%, RR 20-30'S, SPO2>90%. NO DROP IN SATURATIONS THIS SHIFT. PT CONTINUES WITH UPWARD GAZE, DOES OPEN EYES SPONTANEOUSLY, BUT DOES NOT APPEAR PURPOSEFUL. WAS ONLY ABLE TO STIMULATE GAG REFLEX ONCE THIS SHIFT. CONTINUES WITH COUGH AND OCCASIONAL SWALLOW. PUPILS ARE UNQUAL WITH LEFT BIGGER THAN RIGHT; BOTH ARE SLUGGISH TO REACT. PT CONTINUES WITH NO PURPOSEFUL MOVEMENTS; DOES HAVE GROSS MOTOR MOVEMENTS WITH PLANTAR REFLEXES ARE STIMULATED. TUBE FEED, VHP, REMAINS AT GOAL OF 45ML/HR WITH NO RESIDUALS. AMIODARONE CONTINUES AT 0.5MG/HR; PT REMAINED IN NSR WITH HR 80-90'S T/O SHIFT WITH OCCASIONAL PAC'S. BP'S STABLE, SEE FLOWSHEET. TEMP PALOMINO AND RECTAL TUBE REMAIN PATENT AND DRAINING TO GRAVITY. WILL CONTINUE TO MONITOR UNTIL REPORT IS HANDED OFF TO ONCOMING RN.
[2021-11-06 05:20] LABS: BAND PERCENT MAN 15 % (0-8); BASOPHILS PERCENT MAN 0 % (0-2); EOSINOPHILS PERCENT MAN 0 % (0-6); LYMPHOCYTES % ATYPICAL MANUAL 3 % (0-0); LYMPHOCYTES ABSOLUTE MAN 0.97 K/mm3 (0.84-5.20); LYMPHOCYTES PERCENT MAN 6 % (21-46); MONOCYTES ABSOLUTE MAN 0.43 K/mm3 (0.16-1.47); MONOCYTES PERCENT MAN 4 % (4-13); MYELOCYTE PERCENT MAN 1 % (0-0); NEUTROPHILS ABSOLUTE MAN 9.35 K/mm3 (1.96-9.15); SEG NEUTROPHILS PERCENT MAN 71 % (41-73); TOTAL CELLS COUNTED 100
--- NOTE | 2021-11-06 09:36 | NUR ---
AM NOTE... ASSUMED CARE OF PT AT 0700, THE PT IS INTUBATED AND HAS BEEN OFF OF SEDATION FOR AT LEAST 2 DAYS, THE PT HAS NO GAG OR SWALLOW BUT COUGHS TO DEEP TRACIAL SUCTIONING. THE PT'S RR INCREASED TO PAINFUL STIMULI BUT NO OTHER RESPONSES NOTED ON THIS ASSESSMENT. THE PT'S VENT SETTINGS ARE AC/VC:22/450/16/70% WITH O2 SATS IN THE LOW 90'S. L/S CLEAR T/O DIM IN THE BASES, SMALL AMOUNT OF THICK GORDILLO SECRETIONS SUCTIONED VIA THE ET TUBE. THE PT'S PUPILS ARE ABOUT 2MM EQUAL AND SLUGGISH TO REACT, THE PT STILL HAS AN UPWARD AND TO THE LEFT GAZE. THE PT'S OG TUBE IS RUNNING TUBE FEEDS AT A GOAL OF 45MLS/HR WITH NO RESIDUALS NOTED ON THIS ASSESSMENT. RECTAL TUBE IN PLACE DRAINING TO GRAVITY, THE PT'S PALOMINO IS PATENT AND DRAINING TO GRAVITY, THE PT'S TEMP DURING THIS ASSESSMENT WAS 100.6. WILL CONTINUE TO MONITOR.
--- NOTE | 2021-11-06 17:14 | NUR ---
At the request of bedside RN, assessed pt and had a good conversation with his sister Lucie. Lucie tells me Israel is her "baby brother", and the only living sibling she has left. We did discuss Israel's lack of response to stimulation or pain. Lucie states, "It's just so hard, and I'm not quite ready to give up hope". We also discussed pt's code status, which Lucie is not ready for changing code status from Full Code at this time.
--- NOTE | 2021-11-06 18:47 | NUR ---
SHIFT SUMMARY.... THE PT HAS BEEN MOSTLY UNRESPONSIVE TO ANY TYPE OF NOXIOUS STIMULI UNTIL APROX 1530 THIS AFTERNOON. WHILE THE PT WAS GETTING A POWERGLIDE PLACED HE STARTED TO MOVE HIS ARM DURING THE PROCEDURE. SINCE THEN THE PT HAS HIS EYES OPEN THEY STILL HAVE AN UPWARD GAZE, THE PT'S LEFT PUPIL IS SLIGHTLY LARGER THAN THE RIGHT AND BOTH ARE SLUGGISH. THE PT HAS STARTED TO MOVE HIS HEAD AWAY DURING ORAL CARE. THE PT HAS ALSO BECOME HYPERTENSIVE SINCE THESE NEW CHANGES, PROVIDER WAS NOTIFIED OF THESE CHANGES AND NEW ORDERS OBTAINED FOR AN EEG TOMORROW (11/07/21) AND TO RESTART THE PROPOFOL DRIP. THE PT'S TUBE FEEDING FORMULA WAS CHANGED AND IS NOW PIVOT 1.5 AND A NEW RATE OF 40MLS/HR. NO RESIDUALS NOTED. RECTAL TUBE HAS NOT HAD ANY OUTPUT THIS SHIFT, NO LEAKAGE NOTED AROUND THE RECTUM. THE PT'S PALOMINO IS PATENT AND DRAINING TO GRAVITY, THE PT'S TMAX THIS SHIFT WAS 100.6. THE PT'S SISTER WAS UPDATED BY THIS RN AND THE PROVIDER, PALLIATIVE CARE RN ALSO CONSULTED. WILL CONTINUE TO MONITOR UNTIL REPORT IS GIVEN TO ONCOMING RN.
--- NOTE | 2021-11-06 23:17 | NUR ---
ASSUMED CARE AT 1900 PT LAYING IN BED INTUBATED WITH VENT SETTINGS AC 22, Vt 450, PEEP 16, FIO2 70%. PT MINIMALLY REACTIVE TO NOXIOUS STIMULI; WEAK GAG, COUGH NOTED WHILE REPOSITIONING; NO PURPOSEFUL MOVEMENT; DID NOT FOLLOW DIRECTIONS; RT PUPIL 3MM, LT PUPIL 4MM; RT LEG MOVEMENT NOTED, HE WAS LIFING HIS LEG A FEW INCHES OFF THE PILLOW ONCE; PROPOFOL INFUSING AT 15MCG/KG/MIN. TEMP 99.5. HR 90'S. SBP 170-180'S; HOSPITALIST CALLED AND PROVIDED ORDERS FOR HYDROLAZINE. PIVOT INFUSING VIA OG AT 40ML/HR (GOAL) WITH 30ML WATER FLUSHES Q4HR; MINIMAL RESIDUALS. RECTAL TUBE AND PALOMINO IN PLACE AND DRAINING TO GRAVITY. SEE SHIFT ASSESSMENT FOR FULL ASSESSMENT.
--- NOTE | 2021-11-07 01:25 | NUR ---
UPDATE PT HAS NOT RESPONDED TO PRN HYDROLAZINE AND CONT TO HAVE SBP 170-180'S. DR HOWELL CALLED AND PROVIDED ORDERS FOR LABETALOL PRN.
[2021-11-07 04:00] LABS: Hemoglobin 10.4 g/dL (13.5-17.5); Mean Corpuscular HGB 34.2 pg (26.0-34.0); Mean Corpuscular HGB Conc 33.5 g/dL (31.5-36.5); Mean Corpuscular Volume 102 fL (80-100); Mean Platelet Volume 12.5 fL (9.1-12.4); Platelet Count 146 K/mm3 (150-400); RDW Coefficient Variation 13.2 % (11.7-14.2); RDW Standard Deviation 49.4 fL (35.1-46.3); Red Blood Cell Count 3.04 M/mm3 (4.30-5.90); White Blood Cell Count 13.14 K/mm3 (4.00-11.30)
[2021-11-07 04:20] LABS: Anion Gap 4 mmol/L (6-16); Blood Urea Nitrogen 85 mg/dL (8-24); Bun/Creatinine Ratio 60.3 (12.0-20.0); CO2, Blood 34 mmol/L (21-32); Calcium, Blood 7.9 mg/dL (8.5-10.1); Chloride, Blood 105 mmol/L (98-108); Creatinine, Blood 1.41 mg/dL (0.60-1.20); Glomerular Filtration Rate 49 (60-); Glucose, Blood 255 mg/dL (70-99); Phosphorus, Blood 3.9 mg/dL (2.5-4.9); Sodium, Blood 143 mmol/L (136-145)
[2021-11-07 04:24] LABS: Base Excess Venous 9.7 mmol/L; Bicarbonate Venous 32.2 mmol/L (24.0-30.0); PCO2 Venous 52.1 mmHg (38-42); pH Blood Venous 7.42 (7.34-7.37)
[2021-11-07 04:48] LABS: BAND PERCENT MAN 8 % (0-8); BASOPHILS PERCENT MAN 0 % (0-2); EOSINOPHILS PERCENT MAN 0 % (0-6); LYMPHOCYTES ABSOLUTE MAN 0.91 K/mm3 (0.84-5.20); LYMPHOCYTES PERCENT MAN 7 % (21-46); METAMYELOCYTE ABSOLUTE MAN 0.13 K/mm3 (0.00-0.00); METAMYELOCYTE PERCENT MAN 1 % (0-0); MONOCYTES ABSOLUTE MAN 1.05 K/mm3 (0.16-1.47); MONOCYTES PERCENT MAN 8 % (4-13); MYELOCYTE ABSOLUTE MAN 0.13 K/mm3 (0.00-0.00); MYELOCYTE PERCENT MAN 1 % (0-0); SEG NEUTROPHILS PERCENT MAN 75 % (41-73); TOTAL CELLS COUNTED 100
--- NOTE | 2021-11-07 07:11 | NUR ---
END OF SHIFT SUMMARY NO ACUTE CHANGES OVERNIGHT. NO CHANGES TO NEURO STATUS; CONT TO NOT BE RESPONSIVE TO VERBAL STIMULI; WEAK GAG; PUPILS UNEQUAL; PROPOFOL INFUSING AT 15MCG/KG/MIN. MAX TEMP 100.2; FAN AND TEMP IN ROOM TURNED DOWN. VENT SETTINGS AC 22/450/16/70%. HR 80'S. SBP 140-180'S; PRN HYDROLAZINE AND LABETALOL NOT HELPFUL; PRN FENTANYL GIVEN AND HELPFUL. TF INFUSING AT GOAL. RECTAL TUBE AND PALOMINO IN PLACE AND DRAINING TO GRAVITY. EEG TAKING PLACE NOW AT SHIFT CHANGE. REPORT GIVEN TO DORY Renteria
--- NOTE | 2021-11-07 07:30 | NUR ---
Received rep[ort from Nicole RENE. EEG in room and went in to assist briefly and was asked if possible to reduce room time until done.
--- NOTE | 2021-11-07 09:30 | NUR ---
EEG done and went in to assess and chart. Patient is intubated with 8.0 ET and 24 and gums with vent settings of AC/VC+ 22/450/60/[address] Sullivan in and increased vent setting and increased demand for O2 to current settings of 22/450/90/16 with sats 98%. Patient opens eyes with care and does not track. He squeezes hands with holding them and moves arms slightly. No LE movement.. He has RIJ dressing intact and site WNL's and is infusing NS TKO. He has restal tube in place with drak liquid stool draining. he has 16Fr brasher draining to gravity yellow urine. He has OG in place and is infusing Pivot 1.5 and is infusing at 40 ml/hr and 30 ml/Q4 water flushes. He is in bilateral soft wrist restraints and skin and circulation checked.
--- NOTE | 2021-11-07 09:39 | NUR ---
Pt remains intubated. Spoke with Primary RN Derrick and discussed case. Pt requiring increased vent support. EEG was performed this AM and awaiting results. Spoke with Pt's sister Lucie over the phone. Provided update and gentle conversation regarding goals of care including considering comfort care. Suggested Lucie to speak with her son Brendon to assist her in decision. Invited Lucie to come see Pt with her reporting plan to call her son and is undecided if she can make it into the hospital today. Lucie reports plan to call this RN a little later today. Palliative Care will remain available.
--- NOTE | 2021-11-07 11:30 | NUR ---
Patient remains off sedation. No changes to vent or gtt settings. All am meds withiut difficulty.;
--- NOTE | 2021-11-07 13:30 | NUR ---
Dr knapp has reduced vent settings to AC/VC+ 22/450/80/16 and sats >95%. No neuro changes and still has eye open and moves UE with care. Rectal tube and brasher patent. Hypertensive at times and medicate per MAR.
--- NOTE | 2021-11-07 15:30 | NUR ---
No significant changes from last note.
--- NOTE | 2021-11-07 18:00 | NUR ---
Patient intubated with 8.0 24 at gums with vent settings just adjusted by Dr Sullivan to AC/VC+ 22/450/70/16 and sats 96%. Neuro s are eye open and no tracking, moves upper extremities slightly and squeezes his hand but not on command and no LE movement. Rectal tube 50 ml/out and brasher 2600 ml clear urine.RIJ intact and bilateral 18ga PowerGlides in UA.
[2021-11-08 04:28] LABS: BASOPHILS ABSOLUTE AUTO 0.02 K/mm3 (0.00-0.23); BASOPHILS PERCENT AUTO 0 % (0-2); EOSINOPHILS PERCENT AUTO 0 % (0-6); Hematocrit 29.6 % (37.0-53.0); Hemoglobin 9.6 g/dL (13.5-17.5); Mean Corpuscular HGB 33.9 pg (26.0-34.0); Mean Corpuscular HGB Conc 32.4 g/dL (31.5-36.5); Mean Corpuscular Volume 105 fL (80-100); Mean Platelet Volume 12.7 fL (9.1-12.4); Platelet Count 149 K/mm3 (150-400); RDW Coefficient Variation 13.2 % (11.7-14.2); RDW Standard Deviation 51.1 fL (35.1-46.3); Red Blood Cell Count 2.83 M/mm3 (4.30-5.90); White Blood Cell Count 12.13 K/mm3 (4.00-11.30)
[2021-11-08 04:37] LABS: IMMATURE GRAN ABSOLUTE AUTO 0.21 K/mm3 (0.00-0.10); IMMATURE GRAN PERCENT AUTO 2 % (0-1); LYMPHOCYTES ABSOLUTE AUTO 0.47 K/mm3 (0.84-5.20); LYMPHOCYTES PERCENT AUTO 4 % (21-46); MONOCYTES ABSOLUTE AUTO 0.28 K/mm3 (0.16-1.47); MONOCYTES PERCENT AUTO 2 % (4-13); NEUTROPHILS ABSOLUTE AUTO 11.15 K/mm3 (1.96-9.15); NEUTROPHILS PERCENT AUTO 92 % (41-73)
[2021-11-08 04:54] LABS: Albumin, Blood 1.9 g/dL (3.4-5.0); Anion Gap 7 mmol/L (6-16); Blood Urea Nitrogen 98 mg/dL (8-24); Bun/Creatinine Ratio 73.1 (12.0-20.0); CO2, Blood 33 mmol/L (21-32); Calcium, Blood 8.4 mg/dL (8.5-10.1); Chloride, Blood 107 mmol/L (98-108); Creatinine, Blood 1.34 mg/dL (0.60-1.20); Glomerular Filtration Rate 52 (60-); Glucose, Blood 277 mg/dL (70-99); Phosphorus, Blood 5.2 mg/dL (2.5-4.9); Potassium, Blood 4.8 mmol/L (3.5-5.5); Sodium, Blood 147 mmol/L (136-145)
--- NOTE | 2021-11-08 06:34 | NUR ---
PT IS LESS AGITATED, TACHYPNEIC AND HYPERTENSIVE WITH PROPOFOL GTT AND PRN FENTANYL. 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 R UPPER ARM SWOLLEN, ELEVATED ON PILLOWS. NO OTHER SIGNIFICANT CHANGES NOTED. PLAN TODAY FOR FAMILY TO COME IN AND DISCUSS POC. WILL CONTINUE TO MONITOR AND REPORT TO ONCOMING SHIFT.
--- NOTE | 2021-11-08 08:00 | NUR ---
Received report from Alpa RENE. Patient is sedated and intubated with 8.0 ET and 24 cm at gums and vent settings of AC/VC+, 22/450/65/16 and sats 94%. He remains eyes open with no tracking, movement to UE's elbows distal, No LE movements. he will squeeze hand if touched. He has 16 Fr. brasher draining to gravity and temp of 98.6. He has RIJ infusing Propofol at 20 mcg/kg/min, and NS TKO x2 for ABX. He has 20ga PowerGlide BRAYDON dressing intact and site WNL's and flushed. He has OG in place and infusing Pivot 1.5 at 40 ml.hr and 30 ml/Q4 water flushes. He has rectal tube in place and has dark brown liquid stool.
--- NOTE | 2021-11-08 09:40 | NUR ---
Dr Sullivan assessed patient and stopped propofol for further assessment. No changes to neuro and or vent and gtt setting other than noted.
--- NOTE | 2021-11-08 11:30 | NUR ---
Repositioned patient and oral care. No changes to neuro and eyes remains open and no tracking. He is slightly agitated from the BP increased and Propofol has been off per Dr Sullivan. Warren and rectal tube remains patent. No cghanges to gtt's and or vent settings. Suctioned patient and had small amount of [place] secretions.
--- NOTE | 2021-11-08 13:30 | NUR ---
Spoke with Lucie sister and gave her update and she stated they will be in today. Propofol remains off and patient slightly hypertensive. Vent settings remains the same as am AC/VC+ 22/450/65/16 and sats >90%. Rectal tube decreased output, brasher remains patent. OG remains infusing Pivot 1.5 at 40 ml/hr and 30 ml/Q4.
--- NOTE | 2021-11-08 15:30 | NUR ---
Started Precedex at 0.5 mcg/kg/hr for agitation and Dr Sullivan is going to order Metoprolol for hypertention. NS TKO and Propofol has been DC'd. No vent changes.
--- NOTE | 2021-11-08 18:00 | NUR ---
Patient remains intubated with 8.0 Et and 24 cm at gums and vent settings of AC/VC+ 22/450/65/16 >90%. OG infusing Pivot 1.5 at 40 ml/hr goal rate and 30 ml/Q4 water flushes. Precedex at 0.5 mcg/kg/hr and NS TKO. Distal extremity gross movements, eye open with care. Recatal tube decreased, brasher output at 2200ml's. Family stated they would come in and did not come in or call after there update noon. Started metoprolol PO and has had not much result.
--- NOTE | 2021-11-08 19:10 | NUR ---
Shift summary. Report received from deborah RN. Pt in bed, sedated and ventilated via ETT. Vent settings: AC/VC 22/450/16/55%. OG tube in place, TF at 40 ml/hr goal rate. R/IJ central line in place, IV pumps running precedex 0.5 mcg/kg/min, NS at 10 ml/hr. PG in BRAYDON, WNL. PT in SWB restraints. Warren catheter in place, rectal tube in place. VS stable, no acute needs noted at this time. Will continue to monitor.
--- NOTE | 2021-11-08 22:50 | NUR ---
PT RESTLESS IN BED, COUGHING OCCASIONALLY. ENTERED PT ROOM FOR REPOSITIONING/BATH. PT GIVEN PRN LABETOLOL 10 MG FOR HTN AND ATIVAN 2 MG FOR RESTLESSNESS/AGITATION. USED PT NAME AND ASKED HIM TO OPEN HIS EYES, PT OPENED EYES AND NODDED YES WHEN ASKED IF HE WAS IN PAIN. PRN FENTANYL 50 MCG GIVEN.
--- NOTE | 2021-11-09 06:31 | NUR ---
Shift summary. Pt rested in bed throughout shift, vent settings changed, now AC/VC 22/450/12/80%. TF still at goal rate, 40 ml/hr. R/IJ central line and PG BRAYDON in place, WNL. IV pumps running precedex 0.7 mcg/kg/hr, NS TKO x2 10ml/hr. Warren catheter in place, 1400 mls out this shift. Rectal tube in place, 100 mls out this shift. SWB restraints in place. Pt restless and hypertensive at beginning of shift, withdrawing from noxious stimuli and oral care, raising arms towards head when out of restraints. Precedex increased and PRN ativan/fentanyl given for sedation/pain. See shift assessment/notes for further details. Will continue to monitor and report off to dayshift RN.
[2021-11-09 08:58] LABS: Anion Gap 3 mmol/L (6-16); Blood Urea Nitrogen 86 mg/dL (8-24); Bun/Creatinine Ratio 76.8 (12.0-20.0); CO2, Blood 36 mmol/L (21-32); Calcium, Blood 8.5 mg/dL (8.5-10.1); Chloride, Blood 115 mmol/L (98-108); Creatinine, Blood 1.12 mg/dL (0.60-1.20); Glomerular Filtration Rate >60 (60-); Glucose, Blood 120 mg/dL (70-99); Potassium, Blood 4.3 mmol/L (3.5-5.5); Sodium, Blood 154 mmol/L (136-145)
--- NOTE | 2021-11-09 09:54 | NUR ---
ASSUMED CARE PT. CURRENTLY ON PRECEDEX GTT AT 0.7MCG/KG/MIN. PT. GRIMACES AND MOVES EXTREM WITH ORAL CARE. OCCASIONALLY OPENS EYES BUT GAZE REMAINS UP AND DOES NOT TRACK. DOES NOT FOLLOW COMMANDS, NO GAG WITH DEEP SUCTION. OCCASIONAL COUGH ON VENT. NO PURPOSEFUL MOVEMENT NOTED. PT. RR INCREASES WITH STIMULATION AND SPO2 DECREASES. PT. CURRENTLY ON VENT SETTINGS ACVC 22, 450, PEEP 12, 90%FIO2. TF INFUSING AT GOAL, RESIDUAL OF 20ML REINSTILLED. RECTAL TUBE DRAINING LIQUID STOOL TO GRAVITY. PALOMINO DRAINING TO GRAVITY. AFEBRILE.
--- NOTE | 2021-11-09 11:51 | NUR ---
PT FAMILY TO UNIT TO TALK WITH DR. PARKER. PLANS FOR FAMILY DISCUSSION REGARDING MOVING FORWARD WITH CARE.
--- NOTE | 2021-11-09 12:44 | NUR ---
Pt resting in bed and remains intubated. Team meeting with Gristmill Operator, Primary RN, this PC RN, Pt's sister, and Pt's nephew. Current plan of care discussed, prognosis discussed, and options discussed including considering comfort care. All questions answered with family reporting plan to consider and will let staff know. Palliative Care will remain available for therapeutic and supportive visits.
--- NOTE | 2021-11-09 13:01 | NUR ---
PT FAMILY BACK TO BEDSIDE, REQUESTING PT BE MADE COMFORT CARE DR. PARKER NOTIFIED. ORDERS OBTAINED. PER DR. PARKER MEDS TO BE GIVEN PRIOR TO EXTUBATION. PALLIATIVE CARE AT BEDSIDE WITH FAMILY .
--- NOTE | 2021-11-09 13:33 | NUR ---
TIME OF 1320 PT. EXTUBATED AT 1313. FAMILY TO WINDOW WITH PALLIATIVE CARE TEAM. PT. MED WITH FENTANYL ONCE EXTUBATED DUE TO RESTLESSNESS, FOR COMFORT PER DR. ROSS. PT APPEARS COMFORTABLE AFTER MEDICATION ADMIN. PT. HR SLOWED AND BECAME APNIC. VIVI CALLED AFTER AUSCULATION FOR 1MIN AT 1320. FAMILY SUPPORTED BY PALLIATIVE CARE.
--- NOTE | 2021-11-09 13:36 | NUR ---
Family has elected to move forward with comfort care. Pt extubated by RT and Primary RN Sammie. Pt medicated for comfort. Family outside of Pt's room and viewing through glass. Offered emotion support. Pt passes away comfortably and peacefully. Offered condolences and provided list of homes to choose from. Family appears to be grieving appropriately. Palliative Care will remain available.
== END 2021-11-09 13:20 | DRG 870 ==
LOC: ER 15:38 → ICUW 21:28 → ICUE 21:28
PROVIDERS: Emergency Medicine; Family Medicine; Internal Medicine Critical Care Medicine; Student in an Organized Health Care Education/Training Program; ADMIT Internal Medicine
PROC: 8E0ZXY6 Isolation (ICD-10-PCS; principal; 2021-11-01)
PROC: 0BH18EZ Insertion of Endotracheal Airway into Trachea, Via Natural or Artificial Opening Endoscopic (ICD-10-PCS; 2021-11-01)
PROC: 02HV33Z Insertion of Infusion Device into Superior Vena Cava, Percutaneous Approach (ICD-10-PCS; 2021-11-01)
PROC: 3E043XZ Introduction of Vasopressor into Central Vein, Percutaneous Approach (ICD-10-PCS; 2021-11-01)
PROC: 3E0333Z Introduction of Anti-inflammatory into Peripheral Vein, Percutaneous Approach (ICD-10-PCS; 2021-11-01)
PROC: XW0DXM6 Introduction of Baricitinib into Mouth and Pharynx, External Approach, New Technology Group 6 (ICD-10-PCS; 2021-11-01)
PROC: XW033E5 Introduction of Remdesivir Anti-infective into Peripheral Vein, Percutaneous Approach, New Technology Group 5 (ICD-10-PCS; 2021-11-01)
PROC: HZ2ZZZZ Detoxification Services for Substance Abuse Treatment (ICD-10-PCS; 2021-11-01)
PROC: 5A1955Z Respiratory Ventilation, Greater than 96 Consecutive Hours (ICD-10-PCS; 2021-11-01)
PROC: 5A09357 Assistance with Respiratory Ventilation, Less than 24 Consecutive Hours, Continuous Positive Airway Pressure (ICD-10-PCS; 2021-11-01)
PROC: 5A12012 Performance of Cardiac Output, Single, Manual (ICD-10-PCS; 2021-11-01)
DX: A41.89 Other specified sepsis (principal); U07.1 COVID-19; J96.01 Acute respiratory failure with hypoxia; J12.82 Pneumonia due to coronavirus disease 2019; R65.21 Severe sepsis with septic shock; G92.8 Other toxic encephalopathy; J13 Pneumonia due to Streptococcus pneumoniae; G93.1 Anoxic brain damage, not elsewhere classified; N17.9 Acute kidney failure, unspecified; E87.3 Alkalosis; J44.0 Chronic obstructive pulmonary disease with (acute) lower respiratory infection; J44.1 Chronic obstructive pulmonary disease with (acute) exacerbation; D61.818 Other pancytopenia; E87.0 Hyperosmolality and hypernatremia; E87.2 Acidosis; I46.8 Cardiac arrest due to other underlying condition; Z51.5 Encounter for palliative care; E11.65 Type 2 diabetes mellitus with hyperglycemia; I48.91 Unspecified atrial fibrillation; K21.9 Gastro-esophageal reflux disease without esophagitis; R25.8 Other abnormal involuntary movements; F10.20 Alcohol dependence, uncomplicated; Z79.82 Long term (current) use of aspirin; Z79.899 Other long term (current) drug therapy; Z79.84 Long term (current) use of oral hypoglycemic drugs; Z87.891 Personal history of nicotine dependence
CPT/HCPCS: 0241U; 31500; 36415; 36556; 36600; 51702; 70450; 71045; 80048; 80053; 80069; 81001; 82248; 82330; 82550; 82728; 82803; 82947; 83036; 83605; 83615; 83735; 83880; 84100; 84132; 84443; 84478; 84484; 85025; 85379; 85610; 86140; 87040; 87070; 87077; 87086; 87185; 87186; 87205; 87493; 92950; 93005; 93010; 93306; 94002; 94003; 94640; 95819; 96365; 96375; 99285-25; A9270; C1751; C9113; C9399; J0248; J0282; J0330; J0360; J0456; J0696; J1100; J1170; J1650; J1815; J1940; J1953; J2060; J2250; J2270; J2704; J3010; J3370; J3411; J7030; J7040; J7050; J7060; J7070; J7120